=== PATIENT | female | born 1960 | race Caucasian/White ===

== ENCOUNTER 2017-08-24 09:13 | Emergency (ER) | payer MEDICAID ==
[~2017-08-24] VITALS: Ht 170.2 cm; Wt 97.1 kg
[~2017-08-24 09:13] MED LIST: ACET325T14 PO; BUPR100T6 PO; BUPR150T20 PO; CLON-364 PO; GABA-826 PO; HYDR50TA13 PO; IBUP-1222 PO; LAMO25TA13 PO; LITH300C PO; NICO-430 TD
[2017-08-24 12:09] LABS: BASOPHILS # (AUTO) 0.03 x10^3/uL (0-0.1); BASOPHILS % (AUTO) 1 % (0-1); EOSINOPHILS # (AUTO) 0.16 x10^3/uL (0-0.4); EOSINOPHILS % (AUTO) 3 % (1-7); LYMPHOCYTES # (AUTO) 2.29 x10^3/uL (1-3.4); LYMPHOCYTES % (AUTO) 41 % (22-44); MD NO; MEAN CORPUSCULAR HGB CONC 34.2 g/dL (32.4-35.8); MEAN CORPUSCULAR VOLUME 90.5 fL (80-100); MEAN PLATELET VOLUME 8.3 fL (7.4-10.4); MONOCYTES # (AUTO) 0.24 x10^3/uL (0.2-0.8); MONOCYTES % (AUTO) 4 % (2-9); NEUTROPHILS # (AUTO) 2.88 x10^3/uL (1.8-6.8); NEUTROPHILS % (AUTO) 52 % (42-75); PLATELET COUNT 229 x10^3/uL (130-400); RED BLOOD COUNT 5.03 x10^6/uL (3.82-5.3); RED CELL DISTRIBUTION WIDTH 13.9 % (9.6-15.2)
[2017-08-24 12:18] LABS: ALANINE AMINOTRANSFERASE 21 U/L (12-78); ALBUMIN 4.1 g/dL (3.4-5.0); ANION GAP 8 mmol/L (5-15); CALCIUM 8.5 mg/dL (8.5-10.1); CHLORIDE 109 mmol/L (98-107)
[2017-08-24 12:21] LABS: ALKALINE PHOSPHATASE 95 U/L (45-117); BILIRUBIN,TOTAL 0.8 mg/dL (0.2-1.0); CREATININE 0.99 mg/dL (0.55-1.02); TOTAL PROTEIN 7.5 g/dL (6.4-8.2)
[2017-08-24] MEDS ORDERED: SODIUM CHLORIDE FLUSH 10ML SYR IVF ONE (13:00)
[2017-08-24] MEDS ORDERED: ONDANSETRON ODT 4 MG PO ONE (13:00)
[2017-08-24] MEDS ORDERED: ONDANSETRON 2MG/ML, 2ML ONE (13:27)
[2017-08-24] MEDS ORDERED: MORPHINE SULFATE 4 MG/ML, 1ML ONE ×2 (13:28→13:41)
[2017-08-24] MEDS: MORPHINE SULFATE 4 MG/ML, 1ML IVPush PRN ×2 (13:30→13:47)
[2017-08-24] MEDS ORDERED: ONDANSETRON ODT 4 MG ONE (13:32)
[2017-08-24 14:30] LABS: CULTURE INDICATED? NO; MICROSCOPIC NOT IND
[2017-08-24 16:20] VITALS: BP 132/82
== END 2017-08-24 16:22 | disposition home or self-care (01) ==
LOC: ED 14:44
DX: R10.11 Right upper quadrant pain (principal); I25.10 Atherosclerotic heart disease of native coronary artery without angina pectoris; K21.9 Gastro-esophageal reflux disease without esophagitis; F31.9 Bipolar disorder, unspecified; F43.10 Post-traumatic stress disorder, unspecified
CPT/HCPCS: 36415; 74176; 76700; 80053; 81003; 85025; 96374; 99285; Q0162